=== PATIENT | female | born 1980 | race Hispanic/Latino ===

== ENCOUNTER 2020-04-20 06:53 | Emergency (ER) | payer BC ==
[~2020-04-20] VITALS: Ht 160 cm; Wt 78.3 kg
[2020-04-20] MEDS ORDERED: SIMETHICONE80 MG PO (08:26)
== END 2020-04-20 08:36 | disposition home or self-care (01) ==
LOC: FSED 07:00
DX: R07.89 Other chest pain (principal)
CPT/HCPCS: 71046; 99283